=== PATIENT | female | born 1995 ===

== ENCOUNTER 2022-09-02 10:48 | Outpatient (CLI) | payer OTHER | END 2022-09-02 12:09 | disposition home or self-care (01) | LOC: PRENATAL 10:48 | PROVIDERS: ATTEND Obstetrics & Gynecology Maternal & Fetal Medicine | DX: O36.80X0 Pregnancy with inconclusive fetal viability, not applicable or unspecified (principal); Z36 Encounter for antenatal screening of mother; Z3A.12 12 weeks gestation of pregnancy ==

== ENCOUNTER 2022-10-29 08:01 | Outpatient (CLI) | payer OTHER | END 2022-10-29 10:43 | disposition home or self-care (01) | LOC: PRENATAL 08:01 | PROVIDERS: ATTEND Obstetrics & Gynecology Maternal & Fetal Medicine | DX: O35.3XX0 Maternal care for (suspected) damage to fetus from viral disease in mother, not applicable or unspecified (principal); O44.00 Complete placenta previa NOS or without hemorrhage, unspecified trimester; Z3A.20 20 weeks gestation of pregnancy ==

== ENCOUNTER 2022-12-23 15:04 | Outpatient (CLI) | payer OTHER | END 2022-12-23 17:00 | disposition home or self-care (01) | LOC: PRENATAL 15:04 | PROVIDERS: ATTEND Obstetrics & Gynecology Maternal & Fetal Medicine | DX: O26.849 Uterine size-date discrepancy, unspecified trimester (principal); O44.00 Complete placenta previa NOS or without hemorrhage, unspecified trimester; Z3A.28 28 weeks gestation of pregnancy ==

== ENCOUNTER 2023-02-02 09:11 | Outpatient (CLI) | payer OTHER | END 2023-02-02 11:22 | disposition home or self-care (01) | LOC: PRENATAL 09:11 | PROVIDERS: ATTEND Obstetrics & Gynecology Maternal & Fetal Medicine | DX: O26.849 Uterine size-date discrepancy, unspecified trimester (principal); O36.8199 Decreased fetal movements, unspecified trimester, other fetus; O44.00 Complete placenta previa NOS or without hemorrhage, unspecified trimester; Z3A.34 34 weeks gestation of pregnancy ==

== ENCOUNTER 2023-02-17 11:23 | Inpatient (IN) | payer OTHER ==
[~2023-02-17] VITALS: Ht 162.6 cm; Wt 2.7 kg
[2023-03-17] MEDS ORDERED: PRENATAL TABLE1 EAC1 PO (06:55)
[2023-03-17 08:11] LABS: HEMATOCRIT 32.9 % (36.0-45.00); HEMOGLOBIN 10.8 g/dL (12.0-15.00); MEAN CELL VOLUME 79.1 fL (80.00-100.00); MEAN CORPUSCULAR HGB CONC 32.9 g/dl (32.0-36.0); PH,URINE 5.5 (5.0-8.0); PLATELET COUNT 238 K/uL (150-450); RED BLOOD COUNT 4.17 M/uL (4.00-6.00); RED CELL DISTRIBUTION WIDTH 17.3 % (11.5-14.5); URINE APPEARANCE Clear; URINE BILIRRUBIN Negative (NEGATIVE); URINE BLOOD Negative; URINE COLOR Yellow; URINE LEUKOCYTE Trace; URINE NITRATE Negative; URINE PROTEIN Negative (NEGATIVE); URINE UROBILINOGEN 0.2 E.U./dl
[2023-03-17 08:14] LABS: URINE EPITHELIAL CELLS 22.4 uL (0.0-38.8); URINE RBC 2.5 uL (0.0-20.8); URINE WBC 43.8 uL (0.0-23.2)
[2023-03-17 08:35] LABS: URINE GLUCOSE 100 MG/DL (NEGATIVE)
[2023-03-17 08:46] LABS: INR < 0.93; PARTIAL THROMBOPLASTIN TIME 23.2 SECONDS (22.0-34.0); PROTHROMBIN TIME 9.6 SECONDS (9.0-11.5)
[2023-03-17 21:46] LABS: ABG PH 7.277 (7.35-7.45); ABG PO2 8.9 mmHg (80-100); ABG pCO2 51.7 mmHg (35-45); BASE EXCESS -3.8 mmol/l; BICARBONATE 23.6 mmol/l (23-25); SaO2 6.6 %
[2023-03-17 21:47] LABS: Tco2 25.2 mmol/l; o2 21 %
[2023-03-18 06:59] LABS: HEMATOCRIT 32.8 % (36.0-45.00); HEMOGLOBIN 10.7 g/dL (12.0-15.00); MEAN CELL VOLUME 78.1 fL (80.00-100.00); MEAN CORPUSCULAR HEMOGLOBIN 25.6 pg (27.00-32.0); MEAN CORPUSCULAR HGB CONC 32.7 g/dl (32.0-36.0); PLATELET COUNT 232 K/uL (150-450); RED BLOOD COUNT 4.19 M/uL (4.00-6.00); RED CELL DISTRIBUTION WIDTH 17.5 % (11.5-14.5)
== END 2023-03-20 17:29 | disposition home or self-care (01) | DRG 788 ==
LOC: OB/GYN 03-14 11:18 → LDR 03-17 06:19 → O/R 03-17 18:12 → OB/GYN 03-17 18:58
PROVIDERS: ADMIT Obstetrics & Gynecology; ATTEND Obstetrics & Gynecology
PROC: 3E033VJ Introduction of Other Hormone into Peripheral Vein, Percutaneous Approach (ICD-10-PCS; 2023-03-17)
PROC: 3E0P7VZ Introduction of Hormone into Female Reproductive, Via Natural or Artificial Opening (ICD-10-PCS; 2023-03-17)
PROC: 4A1HXCZ Monitoring of Products of Conception, Cardiac Rate, External Approach (ICD-10-PCS; 2023-03-17)
PROC: 10D00Z1 Extraction of Products of Conception, Low, Open Approach (ICD-10-PCS; principal; 2023-03-17 17:00)
DX: O33.8 Maternal care for disproportion of other origin (principal); O36.8130 Decreased fetal movements, third trimester, not applicable or unspecified; Z3A.40 40 weeks gestation of pregnancy; Z20.822 Contact with and (suspected) exposure to COVID-19; Z37.0 Single live birth